=== PATIENT | male | born 1965 | race Caucasian/White ===

== ENCOUNTER 2017-03-25 15:14 | Emergency (ER) | payer SELFPAY | END 2017-03-25 19:02 | disposition home or self-care (01) | LOC: EDBD 15:14 → D.ER 15:14 | DX: S01.81XA Laceration without foreign body of other part of head, initial encounter (principal); W10.9XXA Fall (on) (from) unspecified stairs and steps, initial encounter; Y93.89 Activity, other specified; Y92.029 Unspecified place in mobile home as the place of occurrence of the external cause ==

== ENCOUNTER 2017-03-31 09:15 | Emergency (ER) | payer MEDICAID | END 2017-03-31 10:41 | disposition home or self-care (01) | LOC: EDBD 09:15 → D.ER 09:15 | DX: S01.81XD Laceration without foreign body of other part of head, subsequent encounter (principal); X58.XXXD Exposure to other specified factors, subsequent encounter; Y92.029 Unspecified place in mobile home as the place of occurrence of the external cause; Z48.02 Encounter for removal of sutures ==